=== PATIENT | male | born 1965 | race Caucasian/White ===

== ENCOUNTER 2019-02-01 05:17 | Emergency (ER) | payer OTHER ==
[2019-02-01] MEDS ORDERED: Lidocaine 2% with EPINEPHrine 1:100,000 20 ML MDV INJECT ONE (05:18)
--- NOTE | 2019-02-01 06:06 | EDM.PDOC ---
ED HPI GENERAL MEDICAL PROBLEM - General Stated Complaint: CUT FINGER Time Seen by Provider: 02/01/19 06:01 Source of Information: Reports: Patient History Limitations: Reports: No Limitations - History of Present Illness INITIAL COMMENTS - FREE TEXT/NARRATIVE: Cut right palm with a utility knife at work right hand Pain Score (Numeric/FACES): 5 - Related Data Allergies Allergy/AdvReac Type Severity Reaction Status Date / Time No Known Allergies Allergy Verified 02/01/19 05:28 Review of Systems - Review of Systems Review Of Systems: ROS reveals no pertinent complaints other than HPI. ED EXAM, GENERAL - Physical Exam Exam: See Below Free Text/Narrative:: 10 cm laceration to the right thenar eminence.Intact strength ,motor and sensory of hand. Normal peripheral pulses and cap refills. Exam Limited By: No Limitations ED TRAUMA EXTREMITY PROCEDURES - Laceration/Wound Repair Right Hand Appearance: Subcutaneous, Linear, Clean Distal NVT: Neuro & Vascular Intact, No Tendon Injury Anesthetic Type: Local Local Anesthesia - Lidocaine (Xylocaine): 2% with EPI Local Anesthetic Volume: 5cc Skin Prep: Chlorhexidine (Hibiciens) Exploration/Debridement/Repair: No Foreign Material Found Closed With: Sutures Suture Size: 3-0 Suture Type: Silk, Interrupted, Simple Drain Placement: No Sterile Dressing Applied: Nurse Tetanus Status Addressed: Yes Complications: No Course - Vital Signs Last Recorded V/S: Last Vital Signs Temp 98.3 F 02/01/19 05:17 Pulse 108 H 02/01/19 05:17 Resp 18 02/01/19 05:17 BP 157/101 H 02/01/19 05:17 Pulse Ox 96 02/01/19 05:17 Departure - Departure Time of Disposition: 06:05 Disposition: Home, Self-Care 01 Condition: Good Clinical Impression: Laceration - Discharge Information Referrals: Jovan Zaidi MD [Primary Care Provider] - - Problem List & Annotations (1) Laceration SNOMED Code(s): 254468410 Code(s): [id number] - Status: Acute Current Visit: Yes - Problem List Review Problem List Initiated/Reviewed/Updated: Yes - Assessment/Plan Plan: 10 stitches of 3 0 Ethilon placed. No complications. DC home.May work with light restrictions.ROS in 7 days
== END 2019-02-01 06:14 | disposition home or self-care (01) ==
LOC: FB.ED 05:17
DX: S61.411A Laceration without foreign body of right hand, initial encounter (principal); W26.0XXA Contact with knife, initial encounter; Y92.89 Other specified places as the place of occurrence of the external cause; Y99.0 Civilian activity done for income or pay
CPT/HCPCS: 12004; 99000; 99282

== ENCOUNTER 2024-03-06 06:51 | Day surgery (SDC) | payer OTHER ==
[~2024-03-06 06:51] MED LIST: Sodium Chloride 0.9% 10 ML Syringe FLUSH PRN
[2024-03-06] MEDS ORDERED: fentaNYL 100 MCG/2 ML SDV IV ONE (06:52)
[2024-03-06] MEDS ORDERED: Midazolam 1 MG/ML 2 ML SDV IV ONE (06:52)
[2024-03-06] MEDS: Lactated Ringers 1,000 ML IV SCH (08:07)
[2024-03-06] MEDS: acetaZOLAMIDE 500 MG Cap.ER PO ONE (09:14)
== END 2024-03-06 09:32 | disposition home or self-care (01) ==
LOC: FB.SDS 06:51
PROVIDERS: ATTEND Ophthalmology
DX: E11.36 Type 2 diabetes mellitus with diabetic cataract (principal); H25.813 Combined forms of age-related cataract, bilateral; H25.041 Posterior subcapsular polar age-related cataract, right eye; E11.3291 Type 2 diabetes mellitus with mild nonproliferative diabetic retinopathy without macular edema, right eye; E11.3212 Type 2 diabetes mellitus with mild nonproliferative diabetic retinopathy with macular edema, left eye; H16.23 Neurotrophic keratoconjunctivitis; H52.223 Regular astigmatism, bilateral; I10 Essential (primary) hypertension; F41.1 Generalized anxiety disorder; K21.9 Gastro-esophageal reflux disease without esophagitis; J45.40 Moderate persistent asthma, uncomplicated; E03.9 Hypothyroidism, unspecified; E66.813 Obesity, class 3; Z87.891 Personal history of nicotine dependence; Z79.4 Long term (current) use of insulin; Z79.890 Hormone replacement therapy; Z79.899 Other long term (current) drug therapy
CPT/HCPCS: 66984; 82947; A9270; J2250; J3010; J7120; V2632; 00142